=== PATIENT | male | born 1945 | race Caucasian/White ===

== ENCOUNTER 2023-06-09 11:33 | Outpatient (REF) | payer MEDICARE, SELFPAY ==
[2023-06-09 16:02] LABS: ALT 34 U/L (16-63); AST 33 U/L (15-37); Albumin 3.4 g/dL (3.4-5.0); Alkaline Phosphatase 81 U/L (46-116); Anion Gap 7.9 mmol/L (3-11); BUN 15 mg/dL (7-18); Bilirubin, Total 0.8 mg/dL (0.2-1.0); CO2 25.1 mmol/L (21.0-32.0); Calcium 9.2 mg/dL (8.5-10.1); Calculated LDL 85 mg/dL (<100); Chloride 107 mmol/L (98-107); Cholesterol 156 mg/dL (<200); Estimated GFR 78.49 (mL/min/1.73m2); Glucose 97 mg/dL (74-106); HDL Cholesterol 56 mg/dL (40-60); Potassium 4.5 mmol/L (3.5-5.1); Sodium 140 mmol/L (136-145); Triglyceride 76 mg/dL (<150)
[2023-06-09 17:21] LABS: Hemoglobin A1C 5.4 % (<5.7)
== END 2023-06-09 11:34 | disposition home or self-care (01) ==
LOC: NCHCN 11:33
PROVIDERS: Visit Provider Nurse Practitioner Family
DX: Z00.00 Encounter for general adult medical examination without abnormal findings (principal); Z86.39 Personal history of other endocrine, nutritional and metabolic disease
CPT/HCPCS: 80053; 80061; 83036

== ENCOUNTER 2023-06-19 09:56 | Outpatient (REF) | payer MEDICARE, BC, SELFPAY ==
[2023-06-20 09:41] LABS: PSA, Screening 8.3 ng/mL (<=6.5)
== END 2023-06-19 09:57 | disposition home or self-care (01) ==
LOC: NCHCN 09:56
PROVIDERS: Visit Provider Nurse Practitioner Family
DX: N40.0 Benign prostatic hyperplasia without lower urinary tract symptoms (principal); Z12.5 Encounter for screening for malignant neoplasm of prostate
CPT/HCPCS: 84153

== ENCOUNTER 2024-06-20 09:41 | Outpatient (REF) | payer MEDICARE, BC, SELFPAY ==
[2024-06-20 16:08] LABS: Hemoglobin A1C 5.4 % (<5.7)
[2024-06-20 16:20] LABS: Anion Gap 9.3 mmol/L (3-11); BUN 25 mg/dL (7-18); CO2 25.7 mmol/L (21.0-32.0); CREATININE 0.9 mg/dL (0.70-1.30); Calcium 10.1 mg/dL (8.5-10.1); Calculated LDL 82 mg/dL (<100); Chloride 109 mmol/L (98-107); Cholesterol 161 mg/dL (<200); Estimated GFR 88.51 (mL/min/1.73m2); Glucose 98 mg/dL (74-106); HDL Cholesterol 58 mg/dL (40-60); Sodium 144 mmol/L (136-145); Triglyceride 106 mg/dL (<150)
== END 2024-06-20 09:42 | disposition home or self-care (01) ==
LOC: NCHCN 09:41
PROVIDERS: Visit Provider Nurse Practitioner Family
DX: E78.5 Hyperlipidemia, unspecified (principal); R73.9 Hyperglycemia, unspecified; R03.0 Elevated blood-pressure reading, without diagnosis of hypertension
CPT/HCPCS: 80048; 80061; 83036

== ENCOUNTER 2024-09-02 15:45 | Outpatient (REF) | payer MEDICARE, BC, SELFPAY ==
[2024-09-02 21:56] LABS: Microalb ug/mg Crea 36.7 ug/mg Cr
== END 2024-09-02 15:46 | disposition home or self-care (01) ==
LOC: NCHCN 15:45
PROVIDERS: Visit Provider Nurse Practitioner Family
DX: R73.9 Hyperglycemia, unspecified (principal)
CPT/HCPCS: 82043; 82570

== ENCOUNTER 2025-04-01 10:21 | Outpatient (REF) | payer MEDICARE, BC, SELFPAY ==
[2025-04-01 16:22] LABS: ALT 20 U/L (16-63); AST 27 U/L (15-37); Albumin 3.3 g/dL (3.4-5.0); Alkaline Phosphatase 100 U/L (46-116); Anion Gap 7.3 mmol/L (3-11); BUN 20 mg/dL (7-18); Bilirubin, Total 0.5 mg/dL (0.2-1.0); CO2 28.7 mmol/L (21.0-32.0); Calcium 9.2 mg/dL (8.5-10.1); Chloride 106 mmol/L (98-107); Cholesterol 255 mg/dL (<200); Glucose 97 mg/dL (74-106); HDL Cholesterol 50 mg/dL (>or=40); Potassium 4.0 mmol/L (3.5-5.1); Sodium 142 mmol/L (136-145); Total Protein 6.9 g/dL (6.4-8.2)
== END 2025-04-01 10:22 | disposition home or self-care (01) ==
LOC: NCHCN 10:21
PROVIDERS: Visit Provider Nurse Practitioner Family
DX: E66.9 Obesity, unspecified (principal); I10 Essential (primary) hypertension
CPT/HCPCS: 80053; 80061

== ENCOUNTER 2025-04-08 17:32 | Outpatient (REF) | payer MEDICARE, BC, SELFPAY ==
[2025-04-08 22:16] LABS: Microalb ug/mg Crea 42.5 ug/mg Cr
== END 2025-04-08 17:33 | disposition home or self-care (01) ==
LOC: NCHCN 17:32
PROVIDERS: Visit Provider Nurse Practitioner Family
DX: R80.9 Proteinuria, unspecified (principal)
CPT/HCPCS: 82043; 82570